=== PATIENT | female | born 1975 | race Caucasian/White ===

== ENCOUNTER → 2019-07-24 | Outpatient (CLI) | payer BC ==
--- NOTE | 2019-07-24 11:09 | KCIC ---
EXAM: Brain MRI without contrast. HISTORY: Intractable migraine. TECHNIQUE: Multiplanar, multisequence magnetic resonance imaging of the brain was performed without contrast. COMPARISON: None. FINDINGS: There is no restricted diffusion to suggest acute or subacute infarction. There is no susceptibility effect to suggest hemorrhage. There is no mass effect or midline shift. There is no hydrocephalus. No suspicious white matter lesion is seen. There are symmetrically prominent optic nerve sheaths which are likely with physiologic limits. There is a tiny amount of fluid within the right mastoid air cells. There is tiny bilateral maxillary sinus mucous retention cysts. There is a tiny focus of T2 hyperintensity within the right ventral aspect of the cervical spinal cord and there is a prominent central canal within the cervical spinal cord at the cervical medullary junction, the former which may be artifactual and the latter of which remains within physiologic limits. There is a slightly hypoplastic distal right vertebral artery. There is a slightly ectopic right cerebellar tonsil extending 3 mm inferior to the foramen magnum. This is not within limits for a Chiari malformation. There is suspected developmental asymmetry in the size of the left greater than right occipital horns. There are few tiny dilated perivascular spaces, one of which is within the posterior right frontal periventricular white matter. IMPRESSION: 1. No acute intracranial finding. 2. Slight right cerebellar tonsillar ectopia, not within limits for a Chiari I malformation. Electronically signed by: Dunia Tamez MD (07/24/2019 11:06 AM) [place] [id number]
== END | disposition home or self-care (01) ==
LOC: KCIC MRI 09:13
PROVIDERS: ATTEND Psychiatry & Neurology Neurology with Special Qualifications in Child Neurology
DX: G93.89 Other specified disorders of brain (principal); J34.1 Cyst and mucocele of nose and nasal sinus; G43.109 Migraine with aura, not intractable, without status migrainosus; Z90.710 Acquired absence of both cervix and uterus
CPT/HCPCS: 70551